=== PATIENT | female | born 1975 | race Caucasian/White ===

== ENCOUNTER 2020-07-18 09:49 | Emergency (ER) | payer BC ==
[~2020-07-18 09:49] MED LIST: ALLEGRA ALLERG180 MG PO; IBUPROFEN600 MG PO; NORCO 5-325 TA1 EACH PO; VIT D PO
[2020-07-18] MEDS ORDERED: PREDNISONE 50 M50 MG PO (12:08)
== END 2020-07-18 12:19 | disposition home or self-care (01) ==
LOC: ER1 09:49
DX: T78.49XA Other allergy, initial encounter (principal); L29.9 Pruritus, unspecified; Z88.0 Allergy status to penicillin; Z91.041 Radiographic dye allergy status
CPT/HCPCS: 96365; 96375; 99283; J1200; J2930

== ENCOUNTER 2021-04-17 14:45 | Emergency (ER) | payer BC ==
[~2021-04-17 14:45] MED LIST changes: +PREDNISONE 50 M50 MG PO
[2021-04-17 16:09] LABS: RED BLOOD COUNT 4.93 M/UL (4.00-5.10); WHITE BLOOD COUNT 7.7 K/UL (4.5-11.0)
[2021-04-17 16:51] LABS: BUN/CREATININE RATIO 20 (0-10)
[2021-04-17] MEDS ORDERED: METRONIDAZOLE500 MG PO (19:24)
[2021-04-17] MEDS ORDERED: CIPRO500 MG PO (19:24)
== END 2021-04-17 20:15 | disposition home or self-care (01) ==
LOC: ER1 14:45
PROVIDERS: Physician Assistant Medical
DX: U07.1 COVID-19 (principal); K57.30 Diverticulosis of large intestine without perforation or abscess without bleeding; Z88.0 Allergy status to penicillin
CPT/HCPCS: 80053; 81001; 85025; 96372; 99284; J1885; J2405; U0002

== ENCOUNTER → 2021-06-16 | Outpatient (CLI) | payer BC ==
[~2021-06-16] MED LIST changes: +CIPRO500 MG PO; +METRONIDAZOLE500 MG PO
== END ==
LOC: US 13:53
DX: E04.1 Nontoxic single thyroid nodule (principal)
CPT/HCPCS: 76536

== ENCOUNTER 2021-10-05 10:10 | Emergency (ER) | payer BC | END 2021-10-05 11:15 | disposition home or self-care (01) | LOC: ER1 10:10 | DX: S61.412A Laceration without foreign body of left hand, initial encounter (principal); W45.8XXA Other foreign body or object entering through skin, initial encounter; Z23 Encounter for immunization | CPT/HCPCS: 12002; 90471; 90715; 99282 ==